=== PATIENT | female | born 1985 | race Hispanic/Latino ===

== ENCOUNTER 2017-04-19 23:48 | Emergency (ER) | payer OTHER ==
[~2017-04-19] VITALS: Ht 172.7 cm; Wt 104.3 kg
[~2017-04-19 23:48] MED LIST: MULTIVITAMINS1 EAC7 PO; ZOFRAN ODT4 MG PO
[2017-04-19] MEDS ORDERED: GLUCOPHAGE500 MG PO (23:56)
[2017-04-20] MEDS ORDERED: AMOXICILLIN500 MG PO (00:29)
== END 2017-04-20 00:38 | disposition home or self-care (01) ==
LOC: ED 23:48
DX: H66.92 Otitis media, unspecified, left ear (principal); J06.9 Acute upper respiratory infection, unspecified; Z79.84 Long term (current) use of oral hypoglycemic drugs
CPT/HCPCS: 99283

== ENCOUNTER 2018-06-30 16:20 | Emergency (ER) | payer OTHER ==
[~2018-06-30] VITALS: Ht 172.7 cm; Wt 104.3 kg
[~2018-06-30 16:20] MED LIST changes: +AMOXICILLIN500 MG PO; +GLUCOPHAGE500 MG PO
== END 2018-06-30 17:10 | disposition home or self-care (01) ==
LOC: ED 16:20
DX: R05 Cough (principal); R50.9 Fever, unspecified; R52 Pain, unspecified

== ENCOUNTER 2021-02-09 08:00 | Day surgery (SDC) | payer SELFPAY ==
[~2021-02-09] VITALS: Ht 172.7 cm; Wt 106.8 kg
--- NOTE | 2021-02-09 11:03 | NUR ---
02/09/21 1103 Mala Woods 1058 PATIENT ARRIVES TO PACU AWAKE BUT DROWSY. DENIES PAIN OR NAUSEA. RESP EVEN AND UNLABORED, MASK AT 6 LITERS. MASK TURNED OFF.
--- NOTE | 2021-02-10 07:36 | OR ---
[facility] [address] [place], [place] [address] Signed DATE OF OPERATION: 02/09/2021 SURGEON: Brooke Gimenez MD PREOPERATIVE DIAGNOSIS: Pilonidal cyst. POSTOPERATIVE DIAGNOSIS: Epidermal inclusion cyst (3 cm). PROCEDURE: Excision of epidermal inclusion cyst in gluteal crease. ESTIMATED BLOOD LOSS: None. INDICATIONS: Latasha is a 35-year-old female, asked to see me for what was thought to be a pilonidal cyst. She said it has been there at least 3 years. She said initially it was quite small, but it seems to have grown in size. At one point, it was incised and drained without much success. She told me her sister had a cyst on her shoulder removed while living in [place]. In the office, Latasha and I looked at that with our medical program specialist. Although in location, it looked most like an epidermal inclusion cyst. It had to be in the gluteal crease. Therefore, the idea of a pilonidal cyst was maintained. It is every bit a 2.5 to 3 cm at the base and it is raised up from the surrounding skin at least 1 cm. The overlying skin is a bit thin, but there was no punctate lesion in the center and certainly no local signs or symptoms of infection. I explained to Latasha despite the fact it being a pilonidal cyst versus inclusion cyst that needed to be excised for treatment and definitive diagnosis. She understands we will leave the wound open and she will have pack it twice a day with the help of her family. It will heal in by secondary intention. We will send that lesion down to our Pathology department for definitive diagnosis. She understands there is risk of surgery including, but not limited to bleeding, infection, scarring, change in contour of the skin as well as possible need for additional surgeries based on pathology results. She had expressed understanding and wished to proceed. PROCEDURE NOTE: Latasha underwent placement of a saddle block by our nurse commercial food instructor. After this, she was taken into the operating room and placed in a prone jose j-knife position with appropriate padding and monitoring. She was given monitored anesthesia care per the IV Electronically Signed By: BROOKE GIMENEZ MD 02/10/21 0736 PATIENT NAME: LATASHA GARNICA OPERATIVE REPORT DATE OF : 81 REPORT #: [id number] PHYSICIAN: BROOKE GIMENEZ MD PCP: LINDSAY DEE PAC REPORT IS CONFIDENTIAL AND NOT TO BE RELEASED WITHOUT AUTHORIZATION [facility] [address] [place], [place] [address] Signed by our nurse commercial food instructor. She was given preoperative antibiotics along with subcutaneous heparin. SCDs were utilized. She was then prepped and draped in the usual sterile fashion. The lesions were easily identified. We used a #15 blade knife and we followed the gluteal crease on the left side. The overlying skin was quite thin in the center. We developed our incision with the help of the cautery and it began to look like an inclusion cyst. We therefore used the #15 blade knife to make an elliptical incision down the right side to include that very thin skin. This was then developed with the cautery. The entire lesion was thus removed. It was probably 3 cm, maybe more in diameter. We used a #15 blade knife to open up the side of the lesion and sure enough it was full of sebum. This was all consistent with an epidermal inclusion cyst. Of course, it leaves a fairly significant opening in the gluteal crease. We did not bring that back together. It is way too broad at the base. We are going to allow to heal and secondarily as we do all her pilonidal cyst. Therefore, the wound was infiltrated with local anesthetic. It was irrigated and suctioned out until clear. The wound was packed with saline soaked gauze. A dry ABD was placed over this along with underwear. Latasha was then rotated supine onto her hospital bed and taken into recovery room in stable condition. Brooke Gimenez MD ALB/MODL /[id number] cc: MD Lindsay Walker PA-C Chart Filed Incomplete Copies: BROOKE GIMENEZ MD, ERIKA PAC CHART FILED INCOMPLETE ~ Electronically Signed By: BROOKE GIMENEZ MD 02/10/21 0736 PATIENT NAME: LATASHA GARNICA OPERATIVE REPORT DATE OF : 81 REPORT #: [id number] PHYSICIAN: BROOKE GIMENEZ MD PCP: LINDSAY DEE PAC REPORT IS CONFIDENTIAL AND NOT TO BE RELEASED WITHOUT AUTHORIZATION
--- NOTE | 2021-02-13 16:48 | PATH ---
[facility] [address] [place], [place] [address] Signed SPECIMEN(S): A SEBACEOUS CYST SPECIMEN SOURCE: A. SEBACEOUS CYST CLINICAL HISTORY: Pilonidal cystectomy. Possible pilonidal cyst. FINAL PATHOLOGIC DIAGNOSIS: Designated "sebaceous cyst": - Epidermal inclusion cyst. BRP:rommel:SABA MICROSCOPIC EXAMINATION: Histologic sections of all submitted blocks are examined by light microscopy. These findings, together with the gross examination, support the pathologic diagnosis. GROSS DESCRIPTION: The specimen, labeled "MF, A," and designated on the requisition "sebaceous cyst," is received in formalin and consists of a fragmented cystic portion of soft tissue (4.5 x 4.4 x 3.7 cm) with attached pink-grant skin (5.2 cm in length x 2.4 cm in width). The specimen is sectioned to reveal a cyst (3.9 cm in greatest dimension) containing a brown-grant, friable material. Call Center Nurse sections are submitted in cassette (A1). AC (under the direct supervision of a pathologist) The Gross Description was prepared using a voice recognition system. The report was reviewed for accuracy; however, sound-alike word errors, addition and/or deletions may occur. If there is any question about this report, please contact Client Services. PERFORMING LABORATORY: The technical component was performed by [facility], [address] [place] [id number] (Fpga Engineer: Meg Lerma MD; CLIA# [id number]). [facility] [address] [place] [id number] (CLIA# [id number]). Diagnostician: Bull Shelley MD Pathologist PATIENT NAME: LATASHA GARNICA PATHOLOGY DATE OF : 81 REPORT #: [id number] PHYSICIAN: JENI PATHOLOGY PCP: RADHA DEE PAC REPORT IS CONFIDENTIAL AND NOT TO BE RELEASED WITHOUT AUTHORIZATION [address] [address] Signed Electronically Signed 02/13/2021 Copies: ~ PATIENT NAME: LATASHA GARNICA PATHOLOGY DATE OF : 81 REPORT #: [id number] PHYSICIAN: JENI PATHOLOGY PCP: RADHA DEE PAC REPORT IS CONFIDENTIAL AND NOT TO BE RELEASED WITHOUT AUTHORIZATION
== END 2021-02-09 12:30 | disposition home or self-care (01) ==
LOC: DS 08:00
PROVIDERS: ATTEND Colon & Rectal Surgery
PROC: 0HB8XZZ Excision of Buttock Skin, External Approach (ICD-10-PCS; principal; 2021-02-09 09:05)
DX: L72.0 Epidermal cyst (principal); E66.9 Obesity, unspecified; E78.5 Hyperlipidemia, unspecified
CPT/HCPCS: 00300; J0690; J1644; J2001; J2250; J2405; J2704; J7121

== ENCOUNTER 2021-04-01 21:44 | Emergency (ER) | payer OTHER ==
[~2021-04-01] VITALS: Ht 172.7 cm; Wt 113.4 kg
[~2021-04-01 21:44] MED LIST changes: +BACTRIM DS TAB1 EACH PO; +CEPHALEXIN500 M1 PO; +IBU600 MG PO; +MAPAP500 MG PO
--- OUTSIDE RECORDS SUMMARY | 2021-04-01 21:46 | XMS ---
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 Jc has no Care Guidelines for this patient. Vannesa VISIT COUNT (12 MO.) 2 [facility]. TOTAL 2 NOTE: Visits indicate total known visits. ED/C VISIT TRACKING (12 MO.) 04/01/2021 21:44 [facility] COMPLAINT: - LT LEG PAIN 03/30/2021 16:08 [facility] OR TYPE: Emergency COMPLAINT: - LT LEG PAIN INPATIENT VISIT TRACKING (12 MO.) No inpatient visits to display in this time frame [email or web address]
== END 2021-04-01 22:25 | disposition home or self-care (01) ==
LOC: ED 21:44
DX: L03.116 Cellulitis of left lower limb (principal); Z79.899 Other long term (current) drug therapy
CPT/HCPCS: 99283

== ENCOUNTER 2022-07-08 21:44 | Emergency (ER) | payer OTHER ==
[~2022-07-08] VITALS: Ht 172.7 cm; Wt 118.4 kg
[2022-07-08] MEDS ORDERED: METFORMIN HCL500 MG PO (22:02)
== END 2022-07-08 22:48 | disposition home or self-care (01) ==
LOC: ED 21:44
DX: S86.911A Strain of unspecified muscle(s) and tendon(s) at lower leg level, right leg, initial encounter (principal); X58.XXXA Exposure to other specified factors, initial encounter; Z79.899 Other long term (current) drug therapy; Z79.84 Long term (current) use of oral hypoglycemic drugs
CPT/HCPCS: 73560; 99283-25